=== PATIENT | male | born 1970 | race Caucasian/White ===

== ENCOUNTER 2021-12-27 09:47 | Outpatient (CLI) | payer OTHER ==
[2021-12-27 10:31] VITALS: BP 126/78
--- NOTE | 2021-12-27 10:31 | SLEEP CARE CONSULTATION ---
Information from patient questionnaire entered by Brannon Sargent. I have reviewed and concur with the information entered by Brannon Sargent. This document represents the service I personally performed and the decisions made by me, Emily Torres ARNP. History of Present Illness Service Date and Time: 12/27/2021 0947 Reason for Visit: New patient Chief Complaint: reports: Snoring, Observed pauses in breathing Date of Onset: 10+ years Usual bedtime: 10-1030 Time it takes to fall asleep: LESS THAN 10MIN Snores at night: Yes Observed to quit breathing while asleep: Yes Sleeps alone due to snoring: No Number of times waking at night: 1-2 Reasons for waking at night: reports: Gasping for air (has happened 7 times over many years, 2 times in last year), Bathroom, Other (UNKNOWN REASON ) Toss, Turn, or Twitch while sleeping: No Recalls having dreams: Yes Usually gets out of bed at: 5-530AM Feels refreshed in the morning: Yes (usually; not completely awake until has coffee) Morning headache: Yes (1 time a week; RESOLVES WITHIN AN HR) Sleepy or fatigued during the day: No Ever fallen asleep while driving: No Takes day naps: No Dreams during day naps: No Prior sleep studies: No Additional HPI information: I had the pleasure of seeing RUTH ANN SUTHERLAND today regarding the possibility of him having a sleep disorder. His current complaints are snoring and observed pauses in breathing. He states his has been telling him for years that he needs a sleep study. She has told him that he snores loudly and has pauses in breathing now. He has gained some weight and his snoring has been getting worse. He states he can fall asleep within 10 minutes. He will wake up 1-3 times a night and normally is able to go back to sleep without a problem. He states that he usually wakes up feeling somewhat refreshed and is good after his morning coffee. He denies daytime sleepiness. He has had rare occasion of waking up gasping for air, twice in the last year. - Parasomnia Symptoms Ever been unable to move upon waking from sleep: No Walks in sleep: No Talks in sleep: No Ever acted out dreams in sleep: No Ever felt weak in the knees when startled or emotional: No Bothered by creepy, crawly, restless sensations in legs: Yes (in evening after dinner) Problems with memory or concentration: Yes (both) Subjective Initial [place] Sleepiness Scale score: 3 (12/17/2021) Past Medical History Past Medical History: reports: Other (HIGH CHOLESTEROL; Bruxism) Social History The patient's occupation is a [employer]. Patient is and lives in . Have you smoked in the past 12 months: No Alcohol use: No Caffeine use: Yes Caffeine amount and frequency: 1 12oz COFFEE DAILY SOMETIMES 2 Family History Family history of sleep disordered breathing: Yes Family Hx Sleep Apnea: Father: Snoring, Sleep apnea - Untreated (MAYBE) Allergies and Home Medications Known drug allergies: No Drug allergies reviewed: Yes (NKDA) Home medication list reviewed: Yes Allergy and home medication list: Medications: Atorvastatin Multivitamin Glucosamine Review of Systems Weight gain over past 5 years: 40 Cardiovascular: denies: high blood pressure Respiratory: reports: sputum production Gastrointestinal: reports: heartburn Neurological: reports: headaches Ear/Nose/Throat: reports: nasal congestion, wisdom teeth removed. denies: tonsillectomy Musculoskeletal: reports: joint pain, back pain Immunologic: reports: allergies to food or environment (possible grass pollen) Physical Exam Vital signs obtained and entered by: BRANNON Young MA Blood Pressure: 126/78 (LEFT ARM) Cuff size: regular Heart Rate: 74 O2 Saturation: 97 Height: 5 ft 10.5 in Weight: 276 lb 3.2 oz Body Mass Index: 39.0 BMI Classification: Obese Neck circumference: 16.75 Nostrils: patent to airflow Mouth and throat: normal Soft palate: normal Hard palate: normal Uvula: normal Uvula visualization: 50% Mallampati Class II Tongue: normal in size Tonsils: 1+ Neck: normal w/o lymphadenopathy or thyromegaly Heart: regular rate and rhythm Lungs: clear bilaterally Impression and Plan 1. Suspected Obstructive Sleep Apnea-Hypopnea Syndrome, as suggested by a history of loud and irregular snoring, observed cessation of breath while asleep, gasping or choking in sleep, morning headache and cognitive impairment. Narrow oropharynx and obesity are common predisposing factors for obstructive sleep apnea-hypopnea syndrome. I recommend proceeding to polysomnography to confirm the diagnosis and to assess severity. If the patient has significant sleep disordered breathing, a manual CPAP titration study will also be performed to find the optimal treatment pressure. I informed the patient of what the sleep studies involve and after some discussion, obtained agreement to proceed. The pathophysiology of obstructive sleep apnea-hypopnea syndrome was discussed with the patient and health risks of cardiovascular and cerebrovascular disease if not treated. Risks of drowsy driving discussed in detail and patient advised to avoid long distance driving and to cloth covered helmet puller at the first sign of drowsiness. Patient agreed to plan. * Schedule polysomnography * Avoid long distance driving or driving when feeling sleepy. * Avoid alcohol, sedative and muscle relaxant around bedtime. * Attempt to lose weight. * Review instructions provided by trained office staff on how to prepare for the sleep study. * Return for follow-up after sleep study completed. Counseling Topics: Weight loss health impact Visit Type: In Office Time Spent with Patient (minutes): 30 Provider Statement: I spent 100% of the Face to Face Visit with the patient with greater than 50% spent counseling the patient and coordination of care.
== END 2021-12-27 09:48 | disposition home or self-care (01) ==
LOC: SC 09:47
PROVIDERS: ATTEND Nurse Practitioner Family
DX: R06.83 Snoring (principal); R06.81 Apnea, not elsewhere classified; R51.9 Headache, unspecified; G47.8 Other sleep disorders; E66.9 Obesity, unspecified; Z68.39 Body mass index [BMI] 39.0-39.9, adult
CPT/HCPCS: 99203; 99212

== ENCOUNTER 2022-01-18 09:28 | Outpatient (CLI) | payer OTHER | END 2022-01-18 09:29 | disposition home or self-care (01) | LOC: SC 09:28 | PROVIDERS: ATTEND Nurse Practitioner Family | DX: G47.33 Obstructive sleep apnea (adult) (pediatric) (principal); R09.02 Hypoxemia | CPT/HCPCS: 95806 ==

== ENCOUNTER 2022-01-28 11:31 | Outpatient (CLI) | payer OTHER ==
[2022-01-28 15:12] VITALS: BP 130/74
--- NOTE | 2022-01-28 15:12 | SLEEP CARE CONSULTATION ---
Information from patient questionnaire entered by Brannon Sargent. I have reviewed and concur with the information entered by Brannon Sargent. This document represents the service I personally performed and the decisions made by me, Clarissa Henderson MD, [facility]. History of Present Illness Service Date and Time: 01/28/2022 1131 Initial [place] Sleepiness Scale score: 3 (12/17/2021) Current [place] Sleepiness Scale score: 6 (01/28/22) Additional HPI information: Mr. Ng returned for follow up of the home sleep apnea test (HSAT) he had on 01/18/2022. The test showed severe obstructive sleep apnea-hypopnea with an AHI of 50.8 and shiraz oxygen saturation of 72%. The patient reports being awake part of the night. The patient was informed of these findings. I explained to him the pathophysiology behind obstructive sleep apnea. We then spent quite a bit of time discussing different treatment options. For mild obstructive sleep apnea, surgery and oral appliance are alternatives to nasal CPAP therapy but in moderate or severe cases, nasal CPAP is the most effective and reliable treatment. Weight loss in an obese individual is strongly recommended. After some discussion, he opted to go with the nasal CPAP therapy. I explained to him how CPAP machine works and what to expect when using the machine. He is actually quite familiar with the treatment because his uses a CPAP. Sleep Study - Results Type of Sleep Study: Home sleep study (COMPLETED 01/18/22) Prior sleep studies: No Allergies and Home Medications Drug allergies reviewed: Yes Home medication list reviewed: Yes Allergy and home medication list: Allergies No Known Drug Allergies Allergy (Verified 12/27/21 09:59) Review of Systems Review of systems same as previous: Yes Physical Exam Vital signs obtained and entered by: BRANNON Young MA Blood Pressure: 130/74 (LEFT ARM) Cuff size: regular Heart Rate: 79 O2 Saturation: 98 Height: 5 ft 10.5 in Weight: 275 lb Body Mass Index: 38.9 BMI Classification: Obese Impression and Plan IMPRESSION: 1. Obstructive Sleep Apnea-Hypopnea Syndrome, severe, associated with moderate hypoxemia. The patient is fairly asymptomatic. As mentioned above, the patient will be started on an autoCPAP set between 5 and 15 cmH2O. Depending on his response and compliance he may be brought back for an overnight CPAP titration study. PLAN: 1. Prescription made for an autoCPAP, heated humidifier, and related supplies. 2. Attempt to lose weight and avoid alcohol consumption near bedtime. 3. Return in one month for follow up. I will assess his response and compliance at that time. Counseling Topics: Weight control Prescriptions: Auto CPAP Follow up with Sleep Care in: 1-2 months Visit Type: In Office Time Spent with Patient (minutes): 15 Provider Statement: I spent 100% of the Face to Face Visit with the patient with greater than 50% spent counseling the patient and coordination of care.
== END 2022-01-28 11:32 | disposition home or self-care (01) ==
LOC: SC 11:31
PROVIDERS: ATTEND Internal Medicine Pulmonary Disease
DX: G47.33 Obstructive sleep apnea (adult) (pediatric) (principal); E66.9 Obesity, unspecified; Z68.38 Body mass index [BMI] 38.0-38.9, adult
CPT/HCPCS: 99212

== ENCOUNTER 2022-03-19 09:09 | Outpatient (CLI) | payer OTHER ==
--- NOTE | 2022-03-19 10:03 | SLEEP CARE CONSULTATION ---
Information from patient questionnaire entered by Brannon Sargent. I have reviewed and concur with the information entered by Brannon Sargent. This document represents the service I personally performed and the decisions made by me, Emily Torres ARNP. History of Present Illness Service Date and Time: 03/19/2022908 Previous diagnosis: Severe, Obstructive Sleep Apnea-Hypopnea Syndrome AHI: 50.8 (in 2021) Reason for follow up: first compliance (S/U 01/31/22) Equipment type: CPAP (RESMED Airsense 11 s/u 01/2022) Equipment obtained from: Other ([facility]; got supplies) Mask style: Nasal (3B [place]) Backup mask available: No (will keep old mask when replaced) Last cushion change: 1 week Prior sleep studies: No Type of Sleep Study: Home sleep study (COMPLETED 01/18/22) HPI additional information: RUTH ANN SUTHERLAND was diagnosed to have severe, AHI 50.8, obstructive sleep apnea- hypopnea syndrome and returned today for CPAP therapy first compliance follow- up. Sleep Study - Results Type of Sleep Study: Home sleep study (COMPLETED 01/18/22) Prior sleep studies: No CPAP Compliance Data - Data Reviewed with Patient Average duration of nightly device use: 4 HRS 33 MIN Compliance rate %: 70 (02/15/22-03/16/22; 29/30 days used) Current pressure setting (cmH2O): 5-15 (median 10.5, avg 13.2, max 14.1) Average residual AHI: 1.9 Central apnea: 0.2 Obstructive apnea: 0.4 Average large leak: 3.9 l/min Subjective Patient concerns: reports: air blowing in eyes, condensation in mask/hose Current pressure setting perceived as: too high (waking up with pressure about 13 or more) On therapy, patient: reports: other (does not feel a difference in restfulness or improved sleep). denies: drowsiness while driving Initial [place] Sleepiness Scale score: 3 (12/17/2021) Current [place] Sleepiness Scale score: 5 (03/19/22) Allergies and Home Medications Drug allergies reviewed: Yes (NKDA) Home medication list reviewed: Yes (no changes) Review of Systems Review of systems same as previous: Yes (no changes) Physical Exam Vital signs obtained and entered by: BRANNON Young MA Blood Pressure: 128/78 (LEFT ARM) Cuff size: regular Heart Rate: 73 O2 Saturation: 96 Height: 5 ft 10.5 in Weight: 278 lb 12.8 oz Body Mass Index: 39.4 BMI Classification: Obese Impression and Plan 1. Obstructive Sleep Apnea-Hypopnea Syndrome, severe, with good treatment compliance and good apnea control. Patient feels like the pressure will go too high and wake him up in the middle of night. The patients pressure will be changed to autoCPAP 11-13 cmH20 to reflect pressure being used. Patient advised to contact me if pressure change is uncomfortable so that it can be adjusted. Goals for apnea control discussed. He has had some water dripping on his after he washes his hose for a couple days. He tried to adjust the heated hose but then got a very dry mouth and put it back to Auto. I advised that he try to blow out hose with machine on, put it lower down and not at head level to drain moisture or get a back up hose and hang one for 2-3 days after washing to dry, using the other one that is dry. He voiced understanding. He also occasionally gets some air leaking into eyes when on his side. I advised trying a CPAP pillow to reduce mask dislodgment when on his side. He voiced understanding. Patient's apnea severity and rationale for treatment to reduce apnea, improve sleep quality and reduce cardiovascular and cerebrovascular events was reviewed. 2. Obesity, unspecified. Currently patients BMI is 39.4. Obesity increases the risk of apnea, CPAP pressure requirements and overall health risks especially cardiovascular and diabetes. Thus patient is advised to lose weight. * Change auto CPAP pressure to 11-13 cmH2O * Notify me if snoring with mask or feeling that the pressure is too much or too little * Attempt to lose weight * Call this office if any problems using CPAP * Return for follow up in 1-2 months, or sooner if concerns arise Counseling Topics: Spare mask, Weight loss health impact Visit Type: In Office Time Spent with Patient (minutes): 22 Provider Statement: I spent 100% of the Face to Face Visit with the patient with greater than 50% spent counseling the patient and coordination of care.
[2022-03-19 10:04] VITALS: BP 128/78
== END 2022-03-19 09:10 | disposition home or self-care (01) ==
LOC: SC 09:09
PROVIDERS: ATTEND Nurse Practitioner Family
DX: G47.33 Obstructive sleep apnea (adult) (pediatric) (principal); E66.9 Obesity, unspecified; Z68.39 Body mass index [BMI] 39.0-39.9, adult
CPT/HCPCS: 99212; 99213

== ENCOUNTER 2023-04-03 09:46 | Outpatient (CLI) | payer OTHER ==
--- NOTE | 2023-04-03 10:36 | Sleep Patient Instructions ---
Sleep Center Visit Summary - Patient Visit Information Reason for Visit: Annual follow-up - Patient Instructions Additional Instructions: You will continue with CPAP therapy with pressure set at 11-13 cmH2O. A supply prescription will be updated with your DME. We encourage you to continue to try to lose weight. Please follow up with the sleep care office in 1 year. - Clinic Information Contact: [facility] [address] [place] [address] [email or web address] T: [phone]
--- NOTE | 2023-04-03 10:43 | SLEEP CARE CONSULTATION ---
Information from patient questionnaire entered by Luz Sargent. I have reviewed and concur with the information entered by Luz Sargent. This document represents the service I personally performed and the decisions made by , Emily Torres ARNP. History of Present Illness Service Date and Time: 04/03/2023 0946 Previous diagnosis: Severe, Obstructive Sleep Apnea-Hypopnea Syndrome AHI: 50.8 (in 2021) Reason for follow up: annual (LAST SEEN 03/2022) Equipment type: CPAP (RESMED Airsense 11 s/u 01/2022) Equipment obtained from: Other ([facility]; got supplies) Mask style: Nasal (3B [place]) Backup mask available: No (waiting on supplies) Last cushion change: 10 days ago Prior sleep studies: No Type of Sleep Study: Home sleep study (COMPLETED 01/18/22) HPI additional information: RUTH ANN SUTHERLAND was diagnosed to have severe, AHI 50.8, obstructive sleep apnea- hypopnea syndrome and returned today with spouse for CPAP therapy annual follow- up. Sleep Study - Results Type of Sleep Study: Home sleep study (COMPLETED 01/18/22) Prior sleep studies: No CPAP Compliance Data - Data Reviewed with Patient Average duration of nightly device use: 5 HRS 43 MINS Compliance rate %: 78 (04/01/22-03/31/23; 310/365 days used) Current pressure setting (cmH2O): 11-13 Average residual AHI: 1.1 Central apnea: 0.2 Obstructive apnea: 0.2 Average large leak: 4.9 L/min Subjective Patient concerns: reports: air blowing in eyes (just needs to reposition), condensation in mask/hose (improved in last few months). denies: aerophagia, mask discomfort, mask leak noise, nasal congestion, dry mouth, nose, throat, epistaxis Observed to snore while using device: No Current pressure setting perceived as: comfortable On therapy, patient: reports: sleeping better, awakening more refreshed, being more awake and alert during the day, more rested overall. denies: drowsiness while driving Initial [place] Sleepiness Scale score: 3 (12/17/2021) Current [place] Sleepiness Scale score: 6 Allergies and Home Medications Known drug allergies: No Drug allergies reviewed: Yes Home medication list reviewed: Yes (no changes) Allergy and home medication list: Allergies No Known Drug Allergies Allergy (Verified 04/01/23 12:54) Review of Systems Review of systems same as previous: Yes (no changes) Physical Exam Vital signs obtained and entered by: EMILY MARQUEZ Blood Pressure: 138/97 Cuff size: long Heart Rate: 67 O2 Saturation: 97 Height: 5 ft 10.5 in Weight: 288 lb 9.6 oz Weight change since last visit: 10 lb gain Body Mass Index: 40.8 BMI Classification: Morbidly Obese Impression and Plan 1. Obstructive Sleep Apnea-Hypopnea Syndrome, severe, with good treatment compliance and good apnea control. On CPAP therapy, the patient has better sleep quality and is more rested overall. Patient has significant improvement of their sleep apnea and is satisfied with current CPAP therapy. He does not like the way his headgear causes thinning of his hair where the straps are on top of his head and would like to try a different mask with headgear that only goes around the back of his head. He did not have anything in the office that would work for him but did send a sample of a [employer]ics Dreamwisp for him to try. He states he will stick with his mask for now unless he likes the Dreamwisp better. Patient's apnea severity and rationale for treatment to reduce apnea, improve sleep quality and reduce cardiovascular and cerebrovascular events was reviewed. 2. Obesity, unspecified. Currently patients BMI is 40.8. Obesity increases the risk of apnea, CPAP pressure requirements and overall health risks especially cardiovascular and diabetes. Thus patient is advised to lose weight. * Continue auto CPAP pressure at 11-13 cmH2O * Update supply prescription * Notify me if snoring with mask or feeling that the pressure is too much or too little * Attempt to lose weight * Call this office if any problems using CPAP * Return for follow up in 12 months, or sooner if concerns arise Counseling Topics: Spare mask, Weight loss health impact Prescriptions: Device supplies Follow up with Sleep Care in: 1 year Visit Type: In Office Time Spent with Patient (minutes): 20 Provider Statement: I spent 100% of the Face to Face Visit with the patient with greater than 50% spent counseling the patient and coordination of care.
[2023-04-03 10:45] VITALS: BP 138/97; O2SAT 97
== END 2023-04-03 09:47 | disposition home or self-care (01) ==
LOC: SC 09:46
PROVIDERS: ATTEND Nurse Practitioner Family
DX: G47.33 Obstructive sleep apnea (adult) (pediatric) (principal); E66.01 Morbid (severe) obesity due to excess calories; Z68.41 Body mass index [BMI] 40.0-44.9, adult
CPT/HCPCS: 99212; 99213